=== PATIENT | female | born 1960 | race Caucasian/White ===

== ENCOUNTER 2016-08-04 12:10 | Emergency (ER) | payer BC ==
[2016-08-04 14:13] VITALS: BP 117/82
--- NOTE | 2016-08-04 14:25 | UC ---
Throat Pain/Nasal Piyush HPI - HPI Summary HPI Summary: ear pressure, sinus pressure and drainage at night. mild cough mostly at night, denies fever. - History of Current Complaint Chief Complaint: UCGeneralIllness Stated Complaint: SINUS COMPLAINT Time Seen by Provider: 08/04/16 14:12 Hx Obtained From: Patient ?: No Onset/Duration: Sudden Onset, Lasting Days Severity: Moderate Cough: Nonproductive Associated Signs & Symptoms: Positive: Sinus Discomfort, Nasal Discharge - Epiglottits Risk Factors Epiglottis Risk Factors: Negative - Allergies/Home Medications Allergies/Adverse Reactions: Allergies Allergy/AdvReac Type Severity Reaction Status Date / Time No Known Allergies Allergy Verified 08/04/16 14:06 Home Medications: Home Medications Calcium W/ Vitamins D & K [Calcium + D 500-1000-40 mg-Unt-Mcg] 08/04/16 [ History] Omeprazole [Prilosec] 08/04/16 [History] SUMAtriptan TAB* [Imitrex TAB*] PRN 08/04/16 [History] PMH/Surg Hx/FS Hx/Imm Hx Previously Healthy: Yes - Surgical History Surgical History: Yes Surgery Procedure, Year, and Place: mitral valve repair - 2005 - Family History Known Family History: Positive: Seizure Disorder - Social History Alcohol Use: Occasionally Substance Use Type: None Smoking Status (MU): Never Smoked Tobacco Review of Systems Constitutional: Negative Skin: Negative Eyes: Negative ENT: Sore Throat, Ear Ache, Nasal Discharge Respiratory: Cough Cardiovascular: Negative Gastrointestinal: Negative Genitourinary: Negative Motor: Negative Neurovascular: Negative Musculoskeletal: Negative Neurological: Headache Psychological: Negative All Other Systems Reviewed And Are Negative: Yes Physical Exam Triage Information Reviewed: Yes Appearance: No Pain Distress, Well-Nourished, Ill-Appearing Vital Signs: Initial Vital Signs Temp 98.7 F 08/04/16 14:08 Pulse 99 08/04/16 14:08 Resp 18 08/04/16 14:08 BP 117/82 08/04/16 14:08 Pulse Ox 97 08/04/16 14:08 Vital Signs Reviewed: Yes Eye Exam: Normal Eyes: Positive: Conjunctiva Clear ENT: Positive: Pharyngeal erythema, Nasal congestion, TM bulging Dental Exam: Normal Neck exam: Normal Neck: Positive: Supple, Nontender, No Lymphadenopathy Respiratory Exam: Normal Respiratory: Positive: Chest non-tender, Normal breath sounds, Wheezing, Expiration Cardiovascular Exam: Normal Cardiovascular: Positive: RRR, No Murmur, Pulses Normal Abdominal Exam: Normal Abdomen Description: Positive: Nontender, No Organomegaly, Soft Bowel Sounds: Positive: Present Musculoskeletal Exam: Other - mild kypohsis Musculoskeletal: Positive: Strength Intact, ROM Intact, No Edema Neurological Exam: Normal Neurological: Positive: Alert Psychological Exam: Normal Psychological: Positive: Normal Response To Family Skin Exam: Normal Throat Pain/Nasal Course/Dx - Course Course Of Treatment: hx obtained, exam performed, meds reviewed and prescribed. - Differential Dx/Diagnosis Differential Diagnosis/HQI/PQRI: Influenza, Laryngitis, Pharyngitis, Sinusitis, URI Provider Diagnoses: Rhinosinusitis. wheezing Discharge - Discharge Plan Condition: Stable Disposition: HOME Prescriptions: guaiFENesin/CODIEN 100MG-10MG* [Robitussin AC 100Mg-10Mg*] 5 ml PO BID #100 ml MDD 10 ml predniSONE TAB* [Deltasone TAB*] 40 mg PO DAILY #10 tab Patient Education Materials: Rhinosinusitis (ED) Referrals: Brett Duvall MD [Primary Care Provider] - Additional Instructions: Take the medication as prescribed. Increase your fluid intake and get plenty of rest.
== END 2016-08-04 14:55 | disposition home or self-care (01) ==
LOC: UCEAST 12:10
DX: J32.9 Chronic sinusitis, unspecified (principal); R06.2 Wheezing
CPT/HCPCS: 99212; G0463

== ENCOUNTER 2017-03-14 20:37 | Emergency (ER) | payer BC ==
[2017-03-14 20:47] VITALS: BP 141/82
[2017-03-14] MEDS ORDERED: Albuterol 2.5 MG/3 ML NEB.SOL* (0.083%) INH ONE (20:55)
[2017-03-14] MEDS ORDERED: Ipratropium 0.5MG/2.5ML NEB* 0.5 MG/2.5 ML NEB.SOLN INH ONE (20:55)
--- NOTE | 2017-03-14 20:55 | UC ---
Respiratory Complaint HPI - HPI Summary HPI Summary: c/o cough x 2 weeks. Did have Z-raghav with some improvement but recent worsening again. OTC meds not helping. - History of Current Complaint Chief Complaint: UCRespiratory Stated Complaint: COUGH/CONGESTION Time Seen by Provider: 03/14/17 20:49 Hx Obtained From: Patient Onset/Duration: Gradual Onset, Lasting Weeks - 2, Still Present Timing: Constant Severity Initially: Mild Severity Currently: Moderate Character: Cough: Productive - occasionally, but more non-productive with coughing fits. Aggravating Factors: Deep Breaths Associated Signs And Symptoms: Positive: URI, Hoarseness, Sinus Discomfort - Allergies/Home Medications Allergies/Adverse Reactions: Allergies Allergy/AdvReac Type Severity Reaction Status Date / Time No Known Allergies Allergy Verified 03/14/17 20:43 Home Medications: Home Medications Benzonatate CAP* [Tessalon 100 MG CAP*] 1 cap BID PRN 03/14/17 [History Confirmed 03/14/17] PMH/Surg Hx/FS Hx/Imm Hx GI/ History: Gastroesophageal Reflux - Surgical History Surgical History: Yes Surgery Procedure, Year, and Place: mitral valve repair - 2005 - Family History Known Family History: Positive: Diabetes, Seizure Disorder Negative: Cardiac Disease, Hypertension - Social History Occupation: Employed Full-time Lives: With Family Alcohol Use: Occasionally Substance Use Type: None Smoking Status (MU): Never Smoked Tobacco - Immunization History Most Recent Influenza Vaccination: NONE 2017 Review of Systems ENT: Nasal Discharge, Sinus Congestion Respiratory: Shortness Of Breath, Cough Is Patient Immunocompromised?: No All Other Systems Reviewed And Are Negative: Yes Physical Exam Triage Information Reviewed: Yes Appearance: No Pain Distress, Well-Nourished, Ill-Appearing Vital Signs: Initial Vital Signs Temp 98.5 F 03/14/17 20:44 Pulse 94 03/14/17 20:44 Resp 18 03/14/17 20:44 BP 141/82 03/14/17 20:44 Pulse Ox 96 03/14/17 20:44 Vital Signs Reviewed: Yes Eyes: Positive: Conjunctiva Inflamed ENT: Positive: Pharynx normal, TMs normal Neck exam: Normal Respiratory: Positive: Wheezing - Expiratory wheeze, worse with coughing Cardiovascular: Positive: RRR, Murmur:Sys:Grade _?_/ - 2/6 Musculoskeletal Exam: Normal Neurological Exam: Normal Psychological Exam: Normal Skin Exam: Normal UC Diagnostic Evaluation - Laboratory O2 Sat by Pulse Oximetry: 96 Respiratory Course/Dx - Differential Dx/Diagnosis Differential Diagnosis/HQI/PQRI: Asthma, Lower Resp Infection, Sinusitis Provider Diagnoses: Acute URI. Acute bronchospasm Discharge - Discharge Plan Condition: Stable Disposition: HOME Prescriptions: predniSONE TAB* [Deltasone TAB*] 20 mg PO DAILY #18 tab Patient Education Materials: Bronchospasm (ED), Prednisone (By mouth), How to Use a Metered-Dose Inhaler (ED)
[2017-03-14] MEDS ORDERED: predniSONE TAB* 20 MG PO ONE (20:58)
[2017-03-14] MEDS ORDERED: Albuterol HFA INHALER* 8 gm MDI INH ONE (21:06)
== END 2017-03-14 21:34 | disposition home or self-care (01) ==
LOC: UCCORT 20:37
DX: J06.9 Acute upper respiratory infection, unspecified (principal); J98.01 Acute bronchospasm; K21.9 Gastro-esophageal reflux disease without esophagitis
CPT/HCPCS: 99213; A9270-GY; G0463; J7512; J7644